=== PATIENT | female | born 1965 | race African-American/Black ===

== ENCOUNTER → 2016-12-28 | Outpatient (CLI) | payer MEDICARE ==
[2015-02-08 00:30] VITALS: BP 160/90
[~2016-12-28] MED LIST: BENZ100C15; LORA10CA; LOSA50TA6; QUET200T4
--- NOTE | 2016-12-28 14:05 | KCIC ---
LUMBAR SPINE MIN 4V History: Low back pain Comparison: None. Findings: 6 views of the lumbar spine are submitted. There is very mild dextroscoliosis. Lumbar vertebral body stature and AP alignment are maintained. There is fairly severe narrowing of the L5-S1 intervertebral disc space, spondylosis at the same level. There is facet degenerative change greater inferiorly of the lumbar spine. Impression: 1. There is degenerative disc disease and spondylosis at L5-S1. There is facet degenerative change inferiorly of the lumbar spine. Electronically signed by: Alex Roberts MD (12/28/2016 2:01 PM) [facility]
== END | disposition home or self-care (01) ==
LOC: KCIC 13:04
PROVIDERS: ATTEND Family Medicine
DX: M51.37 Other intervertebral disc degeneration, lumbosacral region (principal); M47.897 Other spondylosis, lumbosacral region
CPT/HCPCS: 72110

== ENCOUNTER 2018-01-26 12:53 | Emergency (ER) | payer MEDICARE ==
[~2018-01-26] VITALS: Ht 170.2 cm; Wt 136.1 kg
[~2018-01-26 12:53] MED LIST changes: +BENZ-8; -BENZ100C15; -LOSA50TA6; +LOSA50TA7
[2018-01-26 13:13] VITALS: BP 139/73
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
[2018-01-26] MEDS ORDERED: DICL50TA4 PO (15:27)
[2018-01-26] MEDS ORDERED: CYCL10TA2 PO (15:27)
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
== END 2018-01-26 15:50 | disposition home or self-care (01) ==
LOC: ER 12:53
DX: R51 Headache (principal); G89.11 Acute pain due to trauma; M54.2 Cervicalgia; M54.5 Low back pain; I10 Essential (primary) hypertension; J45.909 Unspecified asthma, uncomplicated; Z88.5 Allergy status to narcotic agent; Z88.1 Allergy status to other antibiotic agents; Z88.6 Allergy status to analgesic agent; V43.42XA Person boarding or alighting a car injured in collision with other type car, initial encounter; Y93.89 Activity, other specified; Y92.488 Other paved roadways as the place of occurrence of the external cause; Y99.8 Other external cause status
CPT/HCPCS: 70450; 72040; 72100; 99284-25

== ENCOUNTER 2020-11-07 13:08 | Emergency (ER) | payer MEDICARE ==
[~2020-11-07] VITALS: Ht 170.2 cm; Wt 175.0 kg
[~2020-11-07 13:08] MED LIST changes: +AMLO-186 PO; +CYCL10TA2 PO; +DICL50TA4 PO; +DOXY100C2 PO; +HYDR50TA9 PO; +IPRA4AER IH; +LOSA-73; -LOSA50TA7; +OLAN5TAB9 PO; +PRED-220 PO; +PRED20TA PO; -QUET200T4; +QUET200T4 PO; +TOPI100T42 PO
[2020-11-07 14:34] LABS: BASE EXCESS ABG 2 mmol/L (-3-3); HCO3 ABG 28 mmol/L (21-28); PCO2 ABG 54 mmHg (35-46); PO2 ABG 127 mmHg (75-108); SAT O2 ABG 98 % (92-99)
[2020-11-07 14:34] LABS: BASO # 0.1 x10^3/uL (0.0-0.2); BASO % 1 % (0-3); EOS # 0.1 x10^3/uL (0.0-0.7); EOS % 2 % (0-3); HEMATOCRIT 37.8 % (36.0-47.0); HEMOGLOBIN 12.5 g/dL (12.0-15.5); LYMPH # 2.1 x10^3/uL (1.0-4.8); LYMPH % 28 % (24-48); MEAN CORPUSCULAR HEMOGLOBIN 31 pg (25-35); MEAN CORPUSCULAR HGB CONC 33 g/dL (31-37); MEAN CORPUSCULAR VOLUME 95 fL (79-100); MONO # 0.5 x10^3/uL (0.0-1.1); MONO % 7 % (0-9); NEUT # 4.8 x10^3/uL (1.8-7.7); NEUT % 63 % (31-73); PLATELET COUNT 266 x10^3/uL (140-400); RED BLOOD COUNT 3.98 x10^6/uL (3.50-5.40); RED CELL DISTRIBUTION WIDTH 13.9 % (11.5-14.5); WHITE BLOOD COUNT 7.6 x10^3/uL (4.0-11.0)
[2020-11-07 14:35] LABS: FIO2 ABG 28
[2020-11-07 14:43] LABS: CALCIUM 9.2 mg/dL (8.5-10.1); CREATININE 0.7 mg/dL (0.6-1.0); GFR 105.5
[2020-11-07 14:48] LABS: ALBUMIN 3.4 g/dL (3.4-5.0); ALBUMIN/GLOBULIN RATIO 0.9 (1.0-1.7); TOTAL BILIRUBIN 0.2 mg/dL (0.2-1.0); TOTAL PROTEIN 7.4 g/dL (6.4-8.2)
--- NOTE | 2020-11-07 14:49 | RAD ---
Exam Date: 11/07/2020 2:[address] HEAD/BRAIN WO Indication: Reason: HEADACHE, HTN / Spl. Instructions: / History: . TECHNIQUE: Head CT was performed without intravenous contrast. One or more of the following dose re duction techniques were utilized: *Automated exposure control (AEC) *Adjustment of mA and/or kV according to patient size *Use of iterative reconstruction technique *CT scan done according to ALARA, or ALARA/IMAGE GENTLY COMPARISON: June 13, 2020 FINDINGS: The ventricles and sulci are normal for the patient's stated age. There is no evidence of acute int racranial hemorrhage, extra-axial collection, mass effect, midline shift, or acute territorial infarc t. No lesion of the skull base or the calvarium is seen. The visualized paranasal sinuses, mastoid ai r cells and orbits are normal in appearance. IMPRESSION: No evidence for acute intracranial abnormality. Electronically signed by: Bucky Santana MD (11/07/2020 2:47 PM) [facility]
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
[2020-11-07] MEDS ORDERED: IBUPROFEN 400 MG TABLET. PO ONE (15:30)
--- NOTE | 2020-11-07 15:38 | EKG ---
[facility] [address] [place] [address] Test Date: 2020-11-07 Test Time: 14:01:48 Pat Name: PONCE RIDLEY Department: Room: Gender: F [employer] Systems Adminstrator: : 1965 Requested By: AMINATA MCNAIR Order Number: [id number] Reading MD: Measurements Intervals [place] Rate: 73 P: 54 GA: 170 QRS: 15 QRSD: 74 T: 31 QT: 406 QTc: 451 Interpretive Statements SINUS RHYTHM NORMAL ECG RI6.02 No previous ECG available for comparison
[2020-11-07 16:03] LABS: BASE EXCESS ABG 4 mmol/L (-3-3); HCO3 ABG 30 mmol/L (21-28); PCO2 ABG 55 mmHg (35-46); PO2 ABG 93 mmHg (75-108); SAT O2 ABG 97 % (92-99)
[2020-11-07 16:04] LABS: FIO2 ABG 25
[2020-11-07 17:20] VITALS: BP 150/63
== END 2020-11-07 17:37 | disposition home or self-care (01) ==
LOC: ER 13:08
DX: R51.9 Headache, unspecified (principal); R06.89 Other abnormalities of breathing; J44.9 Chronic obstructive pulmonary disease, unspecified; M79.602 Pain in left arm; I10 Essential (primary) hypertension; F17.200 Nicotine dependence, unspecified, uncomplicated; Z88.1 Allergy status to other antibiotic agents; Z88.5 Allergy status to narcotic agent; Z88.6 Allergy status to analgesic agent
CPT/HCPCS: 36415; 36600; 70450; 80053; 82805; 83735; 84484; 85025; 93005; 94660; 99285-25

== ENCOUNTER → 2020-11-17 | Outpatient (CLI) | payer MEDICARE ==
[2020-11-07 17:20] VITALS: BP 150/63
[~2020-11-17] MED LIST changes: -DOXY100C2 PO; +DOXY100C3 PO; +OLAN5TAB67 PO; -OLAN5TAB9 PO
--- NOTE | 2020-11-18 18:45 | SLEEP ---
DATE OF STUDY: 11/17/2020 HOME SLEEP STUDY REFERRING PHYSICIAN: Yang Rowe MD. The patient is a 54-year-old who weighs 349 pounds with a BMI of 54.7. The patient's [place] score was 24. The patient underwent home sleep study performed at [facility]. Total recording time was 382 minutes. During the night study, the patient had 142 obstructive apneas, 11 central apneas and 55 mixed apneas. The patient also had 19 hypopneas. The patient's AHI was 48.6 per hour. Nocturnal oximetry study revealed an average oxygen saturation of 89% with the lowest of 68%. The 165 minutes were spent with oxygen saturation less than 90% and 67 minutes with saturation less than 85% and another 23 minutes with saturation less than 80%. Mean heart rate 81 beats per minute with a maximum of 113 beats per minute. IMPRESSION: 1. Severe obstructive sleep apnea at an AHI of 48.6 per hour. 2. Nocturnal hypoxia secondary to obstructive sleep apnea . RECOMMENDATIONS: 1. The patient would benefit from in-lab CPAP titration study due to the severity of sleep apnea. 2. Once the patient is optimally treated with CPAP, then follow up in 4-6 weeks to assess compliance and to document clinical improvement. 3. Weight loss is strongly advised. 4. Avoid UPHOLSTERY TRIMMER depressants. 5. Cautioned regarding driving until symptoms of sleep apnea resolve with above recommendations. MATTHEW DR: Dejuan TID: [id number] CC: Yang ROWE MD
== END ==
LOC: RT 12:01
PROVIDERS: ATTEND Family Medicine
DX: G47.33 Obstructive sleep apnea (adult) (pediatric) (principal); G47.34 Idiopathic sleep related nonobstructive alveolar hypoventilation
CPT/HCPCS: G0399

== ENCOUNTER 2021-07-30 22:34 | Emergency (ER) | payer MEDICARE, OTHER ==
[~2021-07-30] VITALS: Ht 175.3 cm; Wt 175.0 kg
[~2021-07-30 22:34] MED LIST changes: +CYCL10TA19 PO; -CYCL10TA2 PO
[2021-07-30 23:42] LABS: BASO # 0.1 x10^3/uL (0.0-0.2); BASO % 1 % (0-3); EOS % 0 % (0-3); HEMATOCRIT 39.8 % (36.0-47.0); HEMOGLOBIN 12.5 g/dL (12.0-15.5); LYMPH # 2.4 x10^3/uL (1.0-4.8); LYMPH % 23 % (24-48); MEAN CORPUSCULAR HEMOGLOBIN 29 pg (25-35); MEAN CORPUSCULAR HGB CONC 31 g/dL (31-37); MEAN CORPUSCULAR VOLUME 94 fL (79-100); MONO % 10 % (0-9); NEUT # 6.9 x10^3/uL (1.8-7.7); NEUT % 66 % (31-73); PLATELET COUNT 268 x10^3/uL (140-400); RED BLOOD COUNT 4.24 x10^6/uL (3.50-5.40); RED CELL DISTRIBUTION WIDTH 16.1 % (11.5-14.5); WHITE BLOOD COUNT 10.5 x10^3/uL (4.0-11.0)
[2021-07-30] MEDS ORDERED: IPRATRPIUM/ALBUTEROL 0.5/2.5MG 3 ML NEBU. NEB ONE (23:45)
[2021-07-30] MEDS ORDERED: methylPREDNISolone SOD SUCC PF 40 MG/ML VIAL. IV ONE (23:45)
[2021-07-30 23:55] LABS: CALCIUM 8.6 mg/dL (8.5-10.1); CREATININE 0.9 mg/dL (0.6-1.0); GFR 78.7; POTASSIUM 4.1 mmol/L (3.5-5.1)
--- NOTE | 2021-07-30 23:55 | RAD ---
EXAM: XR CHEST 2V 07/30/2021 11:35 PM CLINICAL INDICATION: Shortness of breath COMPARISON: Chest radiograph 06/12/2020 TECHNIQUE: PA and lateral views of the chest FINDINGS: Cardiomegaly is unchanged. There are mild diffuse bilateral opacities and indistinct pulmo nary vascularity. No pleural effusion or pneumothorax. No obvious acute osseous abnormality. IMPRESSION: Cardiomegaly and bilateral opacities suspicious for mild pulmonary edema. Electronically signed by: Stacie Quinones MD (07/30/2021 11:53 PM) [facility]
[2021-07-31 02:27] LABS: INFLUENZA A PATIENT NEGATIVE (NEGATIVE); INFLUENZA B PATIENT NEGATIVE (NEGATIVE)
[2021-07-31 03:38] VITALS: BP 167/93
[2021-07-31] MEDS ORDERED: PRED20TA PO (04:36)
[2021-07-31] MEDS ORDERED: ALBU2.5V8 IH (04:36)
--- NOTE | 2021-07-31 06:11 | EKG ---
[facility] [address] [place] [address] Test Date: 2021-07-30 Test Time: 22:57:33 Pat Name: PONCE RIDLEY Department: Room: Gender: F Career Counselor: : 1965 Requested By: TIFFANY MORENO Order Number: [id number] Reading MD: Saravanan Guan Measurements Intervals [place] Rate: 92 P: 37 MA: 148 QRS: 15 QRSD: 80 T: 41 QT: 380 QTc: 475 Interpretive Statements SINUS RHYTHM ATRIAL PREMATURE COMPLEX(ES) PROLONGED QT Electronically Signed On 08-17-2021 19:03:29 CDT by Saravanan Guan
--- NOTE | 2021-09-16 02:23 | PHYS DOC ---
Past Medical History Past Medical History: Asthma, COPD, Hypertension, Other Additional Past Medical Histor: TWO TRAUMATIC BRAIN INJURIES Past Surgical History: Tubal ligation, Other Additional Past Surgical Histo: D&C Smoking Status: Never Smoker Alcohol Use: None Drug Use: None General Adult EDM: Chief Complaint: SHORTNESS OF BREATH HPI: HPI: Patient is a 55 year old with history of sleep apnea on CPAP at home who presents today with shortness of breath. She and her coworkers noticed that she was increasingly short of breath. She is on oxygen at home but becomes hypoxic occasionally. She is at her current oxygen requirement baseline. She is complaining of a runny nose and congestion. No other significant past medical history. No trauma or falls. No cough or chest pain. Review of Systems: Review of Systems: Constitutional: Denies fever or chills. [] Eyes: Denies change in visual acuity. [] HENT: Denies nasal congestion or sore throat. [] Respiratory: Positive for shortness of breath Cardiovascular: Denies chest pain or edema. [] GI: Denies abdominal pain, nausea, vomiting, bloody stools or diarrhea. [] : Denies dysuria. [] Musculoskeletal: Denies back pain or joint pain. [] Integument: Denies rash. [] Neurologic: Denies headache, focal weakness or sensory changes. [] Endocrine: Denies polyuria or polydipsia. [] Lymphatic: Denies swollen glands. [] Psychiatric: Denies depression or anxiety. [] Heart Score: C/O Chest Pain: No Risk Factors: Risk Factors: DM, Current or recent (<one month) smoker, HTN, HLP, family history of CAD, obesity. Risk Scores: Score 0 - 3: 2.5% MACE over next 6 weeks - Discharge Home Score 4 - 6: 20.3% MACE over next 6 weeks - Admit for Clinical Observation Score 7 - 10: 72.7% MACE over next 6 weeks - Early Invasive Strategies Current Medications: Current Medications Medications (Trade) Dose Ordered Sig/Edson Start Time Stop Time Status Last Admin Dose Admin Albuterol/ Ipratropium (Duoneb) 3 ml 1X ONCE 07/30/21 23:45 07/30/21 23:50 DC 07/31/21 00:03 3 ML Methylprednisolone Sodium Succinate (SOLU-Medrol 40MG VIAL) 40 mg 1X ONCE 07/30/21 23:45 4/2/22 23:50 DC 07/31/21 01:13 40 MG Allergies: Allergies: Allergies Coded Allergies Type Severity Reaction Last Updated Verified acetaminophen Allergy Severe paralysis 01/26/18 Yes oxycodone Allergy Severe paralysis 01/26/18 Yes erythromycin base Allergy Intermediate 01/26/18 Yes Physical Exam: PE: Constitutional: Well developed, well nourished, no acute distress, non-toxic appearance. [] HENT: Normocephalic, atraumatic, bilateral external ears normal, oropharynx j[address], no oral exudates, nose normal. [] Eyes: PERRLA, EOMI, conjunctiva normal, no discharge. [] Neck: Normal range of motion, no tenderness, supple, no stridor. [] Cardiovascular:Heart rate regular rhythm, no murmur [] Lungs & Thorax: Bilateral breath sounds clear to auscultation [] Abdomen: Bowel sounds normal, soft, no tenderness, no masses, no pulsatile masses. [] Skin: Warm, dry, no erythema, no rash. [] Back: No tenderness, no CVA tenderness. [] Extremities: No tenderness, no cyanosis, no clubbing, ROM intact, no edema. [] Neurologic: Alert and oriented X 3, normal motor function, normal sensory function, no focal deficits noted. [] Psychologic: Affect normal, judgement normal, mood normal. [] Current Patient Data: Vital Signs: Vital Signs Date Time Temp Pulse Resp B/P (MAP) Pulse Ox O2 Delivery O2 Flow Rate FiO2 07/31/21 03:38 104 20 167/93 (117) 93 Nasal Cannula 3.0 07/30/21 22:35 98.6 98.6 EKG: EKG: [] Radiology/Procedures: Radiology/Procedures: [] Course & Med Decision Making: Course & Med Decision Making Pertinent Labs and Imaging studies reviewed. (See chart for details) Patient becomes hypoxic when sleeping however when woken up her hypoxia resolves. Patient is on her normal home O2. Dragon Disclaimer: Dragon Disclaimer: This electronic medical record was generated, in whole or in part, using a voice recognition dictation system. Departure Departure Impression: Primary Impression: Upper respiratory infection Disposition: HOME / SELF CARE / HOMELESS Condition: STABLE Referrals: Yang ROWE MD (PCP) Patient Instructions: Upper Respiratory Infection, Adult Scripts Prednisone (PREDNISONE) 20 Mg Tablet 40 MG PO DAILY for 4 Days, #8 TAB Prov: TIFFANY MORENO MD 07/31/21 Albuterol Sulfate (PROAIR HFA INHALER) 8.5 Gm Hfa.aer.ad 2 PUFF IH PRN Q4-6HRS PRN for wheezing for 21 Days, #1 INHALER 0 Refills Prov: TIFFANY MORENO MD 07/31/21 TIFFANY MORENO MD September 16, 2021 02:23
== END 2021-07-31 05:35 | disposition home or self-care (01) ==
LOC: ER 22:34
DX: J06.9 Acute upper respiratory infection, unspecified (principal); J44.9 Chronic obstructive pulmonary disease, unspecified; I10 Essential (primary) hypertension; Z20.822 Contact with and (suspected) exposure to COVID-19; Z88.1 Allergy status to other antibiotic agents; Z88.5 Allergy status to narcotic agent; Z88.6 Allergy status to analgesic agent
CPT/HCPCS: 36415; 71046; 80048; 83880; 84484; 85025; 87428; 93005; 94640; 96374; 99285; J2920